=== PATIENT | female | born 1965 | race Two or more races ===

== ENCOUNTER 2024-05-17 10:51 | Emergency (ER) | payer OTHER ==
[~2024-05-17] VITALS: Ht 177.8 cm; Wt 108.9 kg
[~2024-05-17 10:51] MED LIST: DULOXETINE HCL60 MG PO
[2024-05-17] MEDS ORDERED: COZAAR25 MG (10:56)
[2024-05-17] MEDS ORDERED: NORVASC5 MG (10:56)
[2024-05-17] MEDS ORDERED: TIROSINT13 MCG (10:56)
[2024-05-17] MEDS ORDERED: PLAVIX75 MG (10:57)
[2024-05-17] MEDS ORDERED: MOBIC7.5 MG (10:57)
[2024-05-17] MEDS ORDERED: KETOROLAC TROMETHAMINE 30 MG VIAL IM STA (11:42)
[2024-05-17] MEDS ORDERED: DEXAMETHASONE SODIUM PHOSPHATE 4 MG/ML VIAL IM STA (11:42)
[2024-05-17] MEDS ORDERED: DEXAMETHASONE SODIUM PHOSPHATE 4 MG/ML VIAL ONE (12:24)
[2024-05-17] MEDS ORDERED: KETOROLAC TROMETHAMINE 30 MG VIAL ONE (12:24)
== END 2024-05-17 13:42 | disposition home or self-care (01) ==
LOC: ER 10:52
DX: M25.50 Pain in unspecified joint (principal); W19.XXXA Unspecified fall, initial encounter
CPT/HCPCS: 72040; 72070; 72100; 96372; 99283; J1100; J1885

== ENCOUNTER 2024-06-02 22:34 | Emergency (ER) | payer OTHER ==
[~2024-06-02] VITALS: Ht 177.8 cm; Wt 108.0 kg
[~2024-06-02 22:34] MED LIST changes: +COZAAR25 MG; +MOBIC7.5 MG; +NORVASC5 MG; +PLAVIX75 MG; +TIROSINT13 MCG
[2024-06-02] MEDS ORDERED: FAMOTIDINE20 MG PO (23:27)
[2024-06-03] MEDS ORDERED: ORPHENADRINE CITRATE 30 MG/ML AMPUL IV STA (01:22)
[2024-06-03] MEDS ORDERED: METHYLPREDNISOLONE SOD SUCC 125 MG VIAL IV STA (01:22)
[2024-06-03] MEDS ORDERED: KETOROLAC TROMETHAMINE 30 MG VIAL IV STA (01:23)
[2024-06-03] MEDS ORDERED: ORPHENADRINE CITRATE 30 MG/ML AMPUL ONE (01:28)
[2024-06-03] MEDS ORDERED: KETOROLAC TROMETHAMINE 30 MG VIAL ONE (01:29)
[2024-06-03] MEDS ORDERED: METHYLPREDNISOLONE SOD SUCC 125 MG VIAL ONE (01:29)
== END 2024-06-03 02:59 ==
LOC: ER 22:36
DX: M79.10 Myalgia, unspecified site (principal); E11.9 Type 2 diabetes mellitus without complications
CPT/HCPCS: 96365; 99282; J1885; J2360; J3490

== ENCOUNTER 2024-06-29 08:24 | Emergency (ER) | payer OTHER ==
[~2024-06-29] VITALS: Ht 175.3 cm; Wt 108.0 kg
[~2024-06-29 08:24] MED LIST changes: +FAMOTIDINE20 MG PO
[2024-06-29] MEDS ORDERED: PAIN RELIEF325 MG PO (08:37)
[2024-06-29] MEDS ORDERED: KETOROLAC TROMETHAMINE 60 MG VIAL IM STA (09:50)
[2024-06-29] MEDS ORDERED: ORPHENADRINE CITRATE 30 MG/ML AMPUL IM STA (09:51)
== END 2024-06-29 11:39 | disposition home or self-care (01) ==
LOC: ER 08:26
DX: M54.2 Cervicalgia (principal); I10 Essential (primary) hypertension
CPT/HCPCS: 72040; 96372; 99283; J1885; J2360

== ENCOUNTER 2024-10-16 14:39 | Emergency (ER) | payer OTHER ==
[~2024-10-16] VITALS: Ht 175.3 cm; Wt 113.4 kg
[~2024-10-16 14:39] MED LIST changes: +PAIN RELIEF325 MG PO
[2024-10-16] MEDS ORDERED: MILLIPRED5 MG PO (15:04)
[2024-10-16] MEDS ORDERED: NEURONTIN300 MG PO (15:04)
[2024-10-16] MEDS ORDERED: METHOTREXA25 MG/1 M5 IJ (15:04)
[2024-10-16] MEDS ORDERED: MELOXICAM15 MG (15:05)
[2024-10-16] MEDS ORDERED: DULOXETINE HCL40 MG PO (15:05)
[2024-10-16] MEDS ORDERED: NIFEDIPINE20 MG (15:06)
[2024-10-16] MEDS ORDERED: NABUMETONE750 MG PO (15:07)
[2024-10-16] MEDS ORDERED: MEPERIDINE HCL/PF 50 MG/ML VIAL IV ONE (16:45)
[2024-10-16] MEDS ORDERED: PROMETHAZINE HCL 50 MG/ML AMPUL IM ONE ×2 (16:57→17:15)
[2024-10-16] MEDS ORDERED: WATER FOR INJ.,BACTERIOSTATIC 30 ML VIAL IJ ONE (16:58)
[2024-10-16] MEDS ORDERED: METHYLPREDNISOLONE SOD SUCC 125 MG VIAL ONE (16:58)
[2024-10-16] MEDS ORDERED: METHYLPREDNISOLONE SOD SUCC 500 MG VIAL IV ONE (17:00)
[2024-10-16] MEDS ORDERED: METHYLPREDNISOLONE SOD SUCC 125 MG VIAL IV ONE (17:00)
[2024-10-16 17:36] LABS: PH,URINE 5.5 (5.0-8.0); URINE APPEARANCE Cloudy; URINE BILIRRUBIN Negative (NEGATIVE); URINE BLOOD Negative; URINE COLOR Yellow; URINE GLUCOSE Negative (NEGATIVE); URINE KETONE Negative (NEGATIVE); URINE LEUKOCYTE Negative; URINE NITRATE Negative; URINE PROTEIN 30 (NEGATIVE); URINE UROBILINOGEN 0.2 E.U./dl
[2024-10-16 17:37] LABS: HEMATOCRIT 40.9 % (36.0-45.00); HEMOGLOBIN 13.9 g/dL (12.0-15.00); MEAN CELL VOLUME 79.5 fL (80.00-100.00); MEAN CORPUSCULAR HEMOGLOBIN 27.1 pg (27.00-32.0); PLATELET COUNT 146 K/uL (150-450); RED BLOOD COUNT 5.15 M/uL (4.00-6.00); RED CELL DISTRIBUTION WIDTH 13.6 % (11.5-14.5)
[2024-10-16 17:39] LABS: URINE BACTERIA 1700.1 uL (0.0-1933); URINE EPITHELIAL CELLS 19.6 uL (0.0-38.8); URINE RBC 11.1 uL (0.0-20.8)
[2024-10-16 18:09] LABS: URINE CAST 0.29 uL (0.0-1.40)
[2024-10-16 18:33] LABS: ALBUMIN 3.4 gm/dL (3.4-5.0); BILIRUBIN TOTAL 0.91 mg/dL (0.3-1.2); CALCIUM 9.4 mg/dL (8.5-10.1); CREATININE SERUM 0.65 mg/dL (0.55-1.02); GFR 93.95; GLOBULINA 4.7 G/DL (2.4-3.5); POTASSIUM 4.06 mEq/L (3.5-5.1); TOTAL PROTEIN 8.1 gm/dL (6.4-8.2)
[2024-10-16 18:42] LABS: C-REACTIVE PROTEIN 2.63 MG/DL (0.00-0.29)
[2024-10-16 18:52] LABS: ERYTHROCYTE SEDIMENTATION RATE 44 mm/hr
[2024-10-16] MEDS ORDERED: MEDROLPACK PO (20:13)
== END 2024-10-16 20:40 | disposition home or self-care (01) ==
LOC: ER 14:42
PROVIDERS: Preventive Medicine Public Health & General Preventive Medicine
DX: M32.8 Other forms of systemic lupus erythematosus (principal); M06.89 Other specified rheumatoid arthritis, multiple sites; Z86.73 Personal history of transient ischemic attack (TIA), and cerebral infarction without residual deficits; I10 Essential (primary) hypertension; M79.7 Fibromyalgia; G62.9 Polyneuropathy, unspecified; E11.9 Type 2 diabetes mellitus without complications
CPT/HCPCS: 36415; 96365; 96372; 99282; J2250; J3490

== ENCOUNTER 2024-11-14 03:44 | Emergency (ER) | payer OTHER ==
[~2024-11-14] VITALS: Ht 177.8 cm; Wt 115.7 kg
[~2024-11-14 03:44] MED LIST changes: +DULOXETINE HCL40 MG PO; +MEDROLPACK PO; +MELOXICAM15 MG; +METHOTREXA25 MG/1 M5 IJ; +MILLIPRED5 MG PO; +NABUMETONE750 MG PO; +NEURONTIN300 MG PO; +NIFEDIPINE20 MG
[2024-11-14] MEDS ORDERED: MOVIPREP POWDE1 EACH PO (03:50)
[2024-11-14] MEDS ORDERED: NIFEDIPINE20 MG PO (03:50)
[2024-11-14] MEDS ORDERED: FAMOTIDINE/PF 20 MG in 0.9 % SODIUM CHLORIDE 8 ML IV PUSH STA (04:30)
[2024-11-14] MEDS ORDERED: ONDANSETRON HCL 2 MG/ML VIAL IV ONE (04:30)
[2024-11-14] MEDS ORDERED: 0.9 % SODIUM CHLORIDE 1,000 ML IV SCH (04:30)
[2024-11-14] MEDS ORDERED: KETOROLAC TROMETHAMINE 30 MG VIAL IV ONE (04:45)
[2024-11-14 05:13] LABS: HEMATOCRIT 41.4 % (36.0-45.00); HEMOGLOBIN 13.7 g/dL (12.0-15.00); MEAN CORPUSCULAR HEMOGLOBIN 26.5 pg (27.00-32.0); MEAN CORPUSCULAR HGB CONC 33.1 g/dl (32.0-36.0); RED BLOOD COUNT 5.18 M/uL (4.00-6.00); RED CELL DISTRIBUTION WIDTH 14.1 % (11.5-14.5)
[2024-11-14 05:20] LABS: PLATELET COUNT 120 K/uL (150-450)
[2024-11-14 05:30] LABS: ALBUMIN 3.3 gm/dL (3.4-5.0); BILIRUBIN TOTAL 1.04 mg/dL (0.3-1.2); CALCIUM 9.1 mg/dL (8.5-10.1); CREATININE SERUM 0.63 mg/dL (0.55-1.02); GFR 97.4; GLOBULINA 4.3 G/DL (2.4-3.5); POTASSIUM 3.98 mEq/L (3.5-5.1); TOTAL PROTEIN 7.6 gm/dL (6.4-8.2)
[2024-11-14] MEDS ORDERED: ZITHROMAX500 MG PO (06:32)
[2024-11-14] MEDS ORDERED: PEPCID AC20 MG PO (06:32)
[2024-11-14] MEDS ORDERED: TUSNEL LIQUID178 ML PO (06:32)
== END 2024-11-14 06:44 | disposition home or self-care (01) ==
LOC: ER 03:46
PROVIDERS: General Practice
DX: B34.9 Viral infection, unspecified (principal); R53.81 Other malaise; Z20.822 Contact with and (suspected) exposure to COVID-19

== ENCOUNTER 2024-11-20 18:43 | Emergency (ER) | payer OTHER ==
[~2024-11-20] VITALS: Ht 175.3 cm; Wt 114.3 kg
[~2024-11-20 18:43] MED LIST changes: +MOVIPREP POWDE1 EACH PO; +NIFEDIPINE20 MG PO; +PEPCID AC20 MG PO; +TUSNEL LIQUID178 ML PO; +ZITHROMAX500 MG PO
[2024-11-20] MEDS ORDERED: HYDROCHLOROTHIA25 MG PO (18:59)
[2024-11-20] MEDS ORDERED: DEXTROSE 5 % AND 0.9 % NACL 500 ML IV SCH (20:30)
[2024-11-20] MEDS ORDERED: FUROsemide 20 MG/2 ML VIAL IV ONE (20:30)
[2024-11-20] MEDS ORDERED: DEXAMETHASONE SODIUM PHOSPHATE 4 MG/ML VIAL IV ONE (20:30)
[2024-11-20] MEDS ORDERED: ORPHENADRINE CITRATE 30 MG/ML AMPUL IM ONE (20:30)
[2024-11-20] MEDS ORDERED: ALBUTEROL SULFATE 3 ML/2.5 MG AMPUL.NEB IH ONE (20:45)
[2024-11-20] MEDS ORDERED: NORFLEX100MG PO (21:53)
== END 2024-11-21 01:26 | disposition home or self-care (01) ==
LOC: ER 18:46
DX: R53.81 Other malaise (principal); M32.9 Systemic lupus erythematosus, unspecified